=== PATIENT | female | born 1965 | race Caucasian/White ===

== ENCOUNTER → 2017-11-12 | Outpatient (CLI) | payer OTHER ==
--- NOTE | 2017-11-12 17:35 | Diagnostic Imaging Report ---
PROCEDURE:HAND RIGHT 3 VIEWS AP \T\ LAT COMPARISON:None. INDICATIONS:RIGHT HAND/WRIST PAIN, DENIES INJURY FINDINGS: Bones: Well-developed and mineralized without fracture, dislocation or focal osseous lesions. No periarticular erosions or lucencies. No degenerative changes. Soft tissues: No soft tissue swelling or radiopaque foreign bodies. CONCLUSION: No osseous abnormalities to explain pain. Dictated by: Cherelle Galo M.D. on 11/12/2017 at 17:35 Electronically approved by: Cherelle Galo M.D. on 11/12/2017 at 17:35
--- NOTE | 2017-11-12 17:36 | Diagnostic Imaging Report ---
PROCEDURE:X-RAY RIGHT WRIST, COMPLETE COMPARISON:None. INDICATIONS:RIGHT HAND PAIN, no trauma FINDINGS: Bones: Normal mineralization. Distal radius and ulna are intact. Carpal bones are intact and normally aligned. Visualized digits are intact. No focal osseous lesions. Soft tissues: No soft tissue swelling or foreign bodies. CONCLUSION: No osseous abnormalities to explain pain. Dictated by: Cherelle Galo M.D. on 11/12/2017 at 17:36 Electronically approved by: Cherelle Galo M.D. on 11/12/2017 at 17:36
== END | disposition home or self-care (01) ==
LOC: RAD 13:21
PROVIDERS: ATTEND Internal Medicine
DX: M25.531 Pain in right wrist (principal)